=== PATIENT | male | born 1965 | race Caucasian/White ===

== ENCOUNTER 2017-07-19 08:57 | Outpatient (CLI) | payer OTHER | END 2017-07-19 09:01 | disposition home or self-care (01) | LOC: SONOGRAMA 08:57 | DX: E04.2 Nontoxic multinodular goiter (principal) ==

== ENCOUNTER 2017-09-23 10:39 | Outpatient (CLI) | payer OTHER | END 2017-09-23 10:55 | disposition home or self-care (01) | LOC: LAB 10:39 | DX: R97.20 Elevated prostate specific antigen [PSA] (principal) ==

== ENCOUNTER 2017-10-17 07:23 | Outpatient (CLI) | payer OTHER | END 2017-10-17 07:28 | disposition home or self-care (01) | LOC: SONOGRAMA 07:23 | DX: R97.20 Elevated prostate specific antigen [PSA] (principal) ==

== ENCOUNTER 2017-10-28 07:05 | Outpatient (CLI) | payer OTHER | END 2017-10-28 07:15 | disposition home or self-care (01) | LOC: TOM 07:05 | DX: C61 Malignant neoplasm of prostate (principal) ==

== ENCOUNTER 2017-11-10 09:26 | Outpatient (CLI) | payer OTHER | END 2017-11-10 17:17 | disposition home or self-care (01) | LOC: NUCLEAR 09:26 | DX: C61 Malignant neoplasm of prostate (principal) | CPT/HCPCS: 78306; A9503 ==

== ENCOUNTER → 2017-11-13 | Outpatient (CLI) | payer OTHER | END | disposition home or self-care (01) | LOC: RAD 16:01 | DX: C61 Malignant neoplasm of prostate (principal) ==

== ENCOUNTER 2017-12-04 11:07 | Outpatient (CLI) | payer OTHER | END 2017-12-04 11:12 | disposition home or self-care (01) | LOC: SONOGRAMA 11:07 | DX: E04.2 Nontoxic multinodular goiter (principal) ==

== ENCOUNTER 2020-05-26 09:14 | Outpatient (CLI) | payer OTHER | END 2020-05-26 09:30 | disposition home or self-care (01) | LOC: MAMO-SONO 09:14 | PROVIDERS: ATTEND Family Medicine | DX: Z12.31 Encounter for screening mammogram for malignant neoplasm of breast (principal); N64.59 Other signs and symptoms in breast ==

== ENCOUNTER 2020-05-30 10:25 | Outpatient (CLI) | payer OTHER | END 2020-05-30 10:36 | disposition home or self-care (01) | LOC: SONOGRAMA 10:25 | PROVIDERS: ATTEND Family Medicine | DX: M75.91 Shoulder lesion, unspecified, right shoulder (principal) ==

== ENCOUNTER 2020-06-20 14:50 | Outpatient (CLI) | payer OTHER | END 2020-06-20 15:04 | disposition home or self-care (01) | LOC: SONOGRAMA 14:50 | PROVIDERS: ATTEND Family Medicine | DX: D11.0 Benign neoplasm of parotid gland (principal) ==

== ENCOUNTER → 2020-07-10 | Outpatient (CLI) | payer OTHER | END | disposition home or self-care (01) | LOC: SONOGRAMA 12:43 | PROVIDERS: ATTEND Pathology Anatomic Pathology & Clinical Pathology | DX: R22.1 Localized swelling, mass and lump, neck (principal) ==

== ENCOUNTER 2020-08-10 08:09 | Outpatient (CLI) | payer OTHER | END 2020-08-10 08:19 | disposition home or self-care (01) | LOC: TOM 08:09 | PROVIDERS: ATTEND Otolaryngology | DX: R22.1 Localized swelling, mass and lump, neck (principal) ==

== ENCOUNTER → 2020-08-10 09:39 | Outpatient (CLI) | payer OTHER | END | disposition home or self-care (01) | LOC: LAB 09:39 | PROVIDERS: ATTEND Radiology Diagnostic Radiology | DX: N20.0 Calculus of kidney (principal) ==

== ENCOUNTER 2021-02-13 08:00 | Outpatient (CLI) | payer OTHER | END 2021-02-13 08:14 | disposition home or self-care (01) | LOC: TOM 08:00 | PROVIDERS: ATTEND Otolaryngology | DX: R22.1 Localized swelling, mass and lump, neck (principal) ==

== ENCOUNTER 2021-06-06 07:43 | Outpatient (CLI) | payer OTHER | END 2021-06-06 07:47 | disposition home or self-care (01) | LOC: NUCLEAR 07:43 | PROVIDERS: ATTEND Family Medicine | DX: I82.621 Acute embolism and thrombosis of deep veins of right upper extremity (principal) ==

== ENCOUNTER 2021-06-18 08:32 | Outpatient (CLI) | payer OTHER | END 2021-06-18 08:36 | disposition home or self-care (01) | LOC: SONOGRAMA 08:32 | PROVIDERS: ATTEND Family Medicine | DX: N39.0 Urinary tract infection, site not specified (principal) ==

== ENCOUNTER 2021-10-24 08:32 | Outpatient (CLI) | payer OTHER | END 2021-10-24 08:38 | disposition home or self-care (01) | LOC: SONOGRAMA 08:32 | DX: K76.0 Fatty (change of) liver, not elsewhere classified (principal) ==

== ENCOUNTER 2022-02-13 09:27 | Outpatient (CLI) | payer OTHER | END 2022-02-13 09:42 | disposition home or self-care (01) | LOC: MRI 09:27 | PROVIDERS: ATTEND Otolaryngology | DX: R22.1 Localized swelling, mass and lump, neck (principal) | CPT/HCPCS: 70542 ==

== ENCOUNTER 2022-02-25 09:30 | Outpatient (CLI) | payer OTHER | END 2022-02-25 09:38 | disposition home or self-care (01) | LOC: SONOGRAMA 09:30 | PROVIDERS: ATTEND Physical Medicine & Rehabilitation | DX: M65.4 Radial styloid tenosynovitis [de Quervain] (principal) ==

== ENCOUNTER 2022-06-07 08:54 | Outpatient (CLI) | payer OTHER | END 2022-06-07 09:08 | disposition home or self-care (01) | LOC: TOM 08:54 | PROVIDERS: ATTEND Urology | DX: C61 Malignant neoplasm of prostate (principal); R31.29 Other microscopic hematuria; R19.02 Left upper quadrant abdominal swelling, mass and lump ==

== ENCOUNTER 2022-06-26 09:36 | Outpatient (CLI) | payer OTHER | END 2022-06-26 09:43 | disposition home or self-care (01) | LOC: SONOGRAMA 09:36 | PROVIDERS: ATTEND Otolaryngology | DX: E04.9 Nontoxic goiter, unspecified (principal) ==

== ENCOUNTER 2022-08-19 09:00 | Outpatient (CLI) | payer OTHER | END 2022-08-19 09:04 | disposition home or self-care (01) | LOC: SONOGRAMA 09:00 | PROVIDERS: ATTEND Pathology Anatomic Pathology & Clinical Pathology | DX: D34 Benign neoplasm of thyroid gland (principal); E04.9 Nontoxic goiter, unspecified ==

== ENCOUNTER 2022-11-13 09:32 | Outpatient (CLI) | payer OTHER | END 2022-11-13 09:34 | disposition home or self-care (01) | LOC: NUCLEAR 09:32 | PROVIDERS: ATTEND Family Medicine | DX: I80.203 Phlebitis and thrombophlebitis of unspecified deep vessels of lower extremities, bilateral (principal) ==

== ENCOUNTER 2024-08-18 09:24 | Outpatient (CLI) | payer OTHER | END 2024-08-18 09:25 | disposition home or self-care (01) | LOC: SONOGRAMA 09:24 | PROVIDERS: ATTEND Otolaryngology | DX: E04.9 Nontoxic goiter, unspecified (principal) ==

== ENCOUNTER 2024-09-14 07:59 | Outpatient (CLI) | payer OTHER | END 2024-09-14 08:09 | disposition home or self-care (01) | LOC: TOM 07:59 | PROVIDERS: ATTEND Family Medicine | DX: R63.4 Abnormal weight loss (principal); C61 Malignant neoplasm of prostate; D11.0 Benign neoplasm of parotid gland ==

== ENCOUNTER 2024-09-28 07:13 | Outpatient (CLI) | payer OTHER | END 2024-09-28 07:19 | disposition home or self-care (01) | LOC: SONOGRAMA 07:13 | PROVIDERS: ATTEND Family Medicine | DX: K76.0 Fatty (change of) liver, not elsewhere classified (principal) ==